=== PATIENT | male | born 2000 | race African-American/Black ===

== ENCOUNTER 2022-07-02 15:02 | Emergency (ER) | payer OTHER ==
[~2022-07-02] VITALS: Ht 157.5 cm; Wt 63.5 kg
[2022-07-02 15:08] VITALS: BP 119/59; TEMP 99.1
[2022-07-02 15:57] LABS: PLATELET COUNT 312 K/uL (142-355)
[2022-07-02 16:06] LABS: POTASSIUM 3.6 mmol/L (3.6-5.2)
== END 2022-07-02 18:33 | disposition home or self-care (01) ==
LOC: ED 15:02
PROVIDERS: Internal Medicine
DX: K59.09 Other constipation (principal)
CPT/HCPCS: 80053; 80307; 80320; 81002; 85027; 96365; 99284